=== PATIENT | female | born 1970 | race Caucasian/White ===

== ENCOUNTER 2017-10-11 16:20 | Emergency (ER) | payer SELFPAY ==
[~2017-10-11] VITALS: Ht 160 cm; Wt 97.1 kg
[~2017-10-11 16:20] MED LIST: ASPI325T49 PO; METF500T PO
[2017-10-11 16:29] VITALS: BP 136/84
[2017-10-11] MEDS ORDERED: LORazepam 2 MG/ML VIAL IM ONE (17:50)
[2017-10-11] MEDS ORDERED: KETOROLAC 60 MG/2 ML VIAL IM ONE (17:50)
[2017-10-11 19:01] LABS: APPEARANCE,URINE CLOUDY (CLEAR); BILIRUBIN,URINE NEGATIVE (NEGATIVE); BLOOD, URINE 3+ (NEGATIVE); COLOR,URINE YELLOW (YELLOW); LEUKOCYTE ESTERASE ,URINE NEGATIVE (NEGATIVE); NITRITE, URINE NEGATIVE (NEGATIVE); UGLUCOSE NEGATIVE (NEGATIVE)
[2017-10-11 19:15] VITALS: BP 128/82
[2017-10-11 19:29] LABS: RBC,URINE NONE SEEN /HPF (0-5); WBC,URINE NONE SEEN /HPF (0-5)
[2017-10-11 19:31] LABS: URINE AMORPHOUS URATE 4+ /HPF (None Seen)
== END 2017-10-11 19:15 | disposition home or self-care (01) ==
LOC: MED 16:20
DX: M51.36 Other intervertebral disc degeneration, lumbar region (principal); M47.896 Other spondylosis, lumbar region; E11.9 Type 2 diabetes mellitus without complications; I10 Essential (primary) hypertension; Z79.82 Long term (current) use of aspirin; Z79.84 Long term (current) use of oral hypoglycemic drugs
CPT/HCPCS: 74176; 81001; 81025; 96372; 99285; J1885; J2060; 99284

== ENCOUNTER 2018-02-19 19:31 | Emergency (ER) | payer MEDICARE ==
[~2018-02-19] VITALS: Ht 157.5 cm; Wt 99.8 kg
[2018-02-19 19:45] VITALS: BP 122/72
--- NOTE | 2018-02-19 19:45 | NUR ---
PT TAKEN TO BED 12
--- NOTE | 2018-02-19 20:21 | NUR ---
Dr. Huang evaluating patient at bedside.
[2018-02-19] MEDS ORDERED: MORPHINE SULFATE 4 MG/ML SYR IVP ONE (20:25)
--- NOTE | 2018-02-19 21:00 | NUR ---
PT TAKEN TO CT
[2018-02-19 21:59] VITALS: BP 128/69
--- NOTE | 2018-02-19 22:00 | NUR ---
Patient discharged with v/s stable. Written and verbal after care instructions given and explained. Patient alert, oriented and verbalized understanding of instructions. Ambulatory with steady gait. All questions addressed prior to discharge. ID band removed. Patient advised to follow up with PMD. Rx of IBU given. Patient educated on indication of medication including possible reaction and side effects. Opportunity to ask questions provided and answered.
== END 2018-02-19 22:00 | disposition home or self-care (01) ==
LOC: MED 19:31
DX: G44.309 Post-traumatic headache, unspecified, not intractable (principal); F07.81 Postconcussional syndrome; E11.9 Type 2 diabetes mellitus without complications; Z79.82 Long term (current) use of aspirin; Z79.84 Long term (current) use of oral hypoglycemic drugs
CPT/HCPCS: 70450; 81002; 81025; 96374; 99284; J2270

== ENCOUNTER 2018-05-15 01:10 | Emergency (ER) | payer BC, MEDICARE ==
[~2018-05-15] VITALS: Ht 157.5 cm; Wt 104.3 kg
[~2018-05-15 01:10] MED LIST changes: +ASPI-1205 PO; -ASPI325T49 PO
[2018-05-15 01:18] VITALS: BP 138/79
--- NOTE | 2018-05-15 01:36 | NUR ---
PT TO ED C/O GERNEALIZED HEADACHE AND DIZZINESS X 8HRS. PT DENIES N/V AT THIS TIME. PT ALERT TO NAME, BIRTHDAY, EVENT, AND PLACE. NO NEURO DEFICITIS NOTED. PT PLACED INTO BED, PENDING MD HERNANDEZ.
[2018-05-15] MEDS ORDERED: KETOROLAC 60 MG/2 ML VIAL IM ONE (03:10)
--- NOTE | 2018-05-15 03:15 | NUR ---
DR. VILLA AT BEDSIDE FOR EVALUATION.
[2018-05-15 04:00] VITALS: BP 130/78
--- NOTE | 2018-05-15 04:00 | NUR ---
Patient discharged with v/s stable. Written and verbal after care instructions given and explained. Patient alert, oriented and verbalized understanding of instructions. Ambulatory with steady gait. All questions addressed prior to discharge. ID band removed. Patient advised to follow up with PMD. Rx of MOTRIN, ZOFRAN, AND NORCO given. Patient educated on indication of medication including possible reaction and side effects. Opportunity to ask questions provided and answered.
== END 2018-05-15 04:00 | disposition home or self-care (01) ==
LOC: MED 01:10
DX: R51 Headache (principal); R68.83 Chills (without fever); R11.0 Nausea; E11.9 Type 2 diabetes mellitus without complications; I10 Essential (primary) hypertension; Z90.49 Acquired absence of other specified parts of digestive tract; Z79.82 Long term (current) use of aspirin; Z79.84 Long term (current) use of oral hypoglycemic drugs
CPT/HCPCS: 81002; 96372; 99283; J1885

== ENCOUNTER 2018-06-16 22:00 | Emergency (ER) | payer BC ==
[~2018-06-16] VITALS: Ht 157.5 cm; Wt 102.1 kg
[2018-06-16 22:06] VITALS: BP 132/67
--- NOTE | 2018-06-16 22:11 | NUR ---
TO LOBBY A/W BED, KO CHANDRA NOTED
--- NOTE | 2018-06-16 22:18 | NUR ---
PT TAKEN TO XRAY FROM [facility] MITCHELL
--- NOTE | 2018-06-16 22:30 | NUR ---
PT RETURN FROM XRAY TO LOBBY
--- NOTE | 2018-06-16 22:37 | NUR ---
PT TAKEN TO BED 11
--- NOTE | 2018-06-16 22:43 | NUR ---
PT CAME INTO THE ER WITH C/O R SHOULDER PAIN. PT STATED THAT SHE WAS AT WORK AND OVERSTRETCHED HER ARMS. NO N/V, PAIN 9/10, SHOOTING PAIN FROM WRIST TO NECK ON RIGHT UPPER EXTREMITY. LIMITED RANGE OF MOTION. NO INFLAMMATION NOTED, NO SKIN DISCOLORATION. PT WAITING TO BE EVALUATED BY ER MD, SAFETY PRECAUTIONS IN PLACE.
--- NOTE | 2018-06-16 22:53 | NUR ---
Lio camejo in [facility] - 06/17/18 at 0053 by LAKISHA PATIENT TAKEN TO XRAY BY RT
[2018-06-17] MEDS ORDERED: KETOROLAC 60 MG/2 ML VIAL IM ONE (00:25)
[2018-06-17 00:42] VITALS: BP 135/80
--- NOTE | 2018-06-17 00:42 | NUR ---
Patient discharged with v/s stable. Written and verbal after care instructions given and explained. Patient alert, oriented and verbalized understanding of instructions. Ambulatory with steady gait. All questions addressed prior to discharge. ID band removed. Patient advised to follow up with PMD. Rx of Tramadol, Motrin given. Patient educated on indication of medication including possible reaction and side effects. Opportunity to ask questions provided and answered. Daughter at bedside.
== END 2018-06-17 00:42 | disposition home or self-care (01) ==
LOC: MED 22:00
DX: M25.511 Pain in right shoulder (principal); E11.9 Type 2 diabetes mellitus without complications; I10 Essential (primary) hypertension; Z79.82 Long term (current) use of aspirin; Z79.84 Long term (current) use of oral hypoglycemic drugs
CPT/HCPCS: 73030; 93005; 96372; 99283; J1885; 99284

== ENCOUNTER 2018-11-19 10:24 | Emergency (ER) | payer BC ==
[~2018-11-19] VITALS: Ht 157.5 cm; Wt 101.3 kg
[2018-11-19 10:25] VITALS: BP 135/76
--- NOTE | 2018-11-19 10:32 | NUR ---
PT AMBULATED TO THE BATHROOM WITH STEADY GAIT. URINE CUP GIVEN
--- NOTE | 2018-11-19 10:37 | NUR ---
PT AMBULATED TO BED 9 WITH STEADY GAIT.
--- NOTE | 2018-11-19 10:37 | NUR ---
BIB SELF. AAO X4 C/O BILATERAL SHOULDER PAIN/NUMBING RADIATING TO BILATERAL ARMS X 2 WEEKS WORSENING TODAY. PT STATES HEADACHE TO RIGHT FRONTAL X TODAY. PT DENIES TRAUMA/ INJURY, CHEST PAIN, SOB. PT UNABLE TO FULLY LIFT UP BOTH ARMS, -DEFORMITY. PMH:DM MED RX: METFORMIN ALLERGY: DENIES
--- NOTE | 2018-11-19 10:37 | NUR ---
Lio camejo in [facility] - 11/19/18 at 1057 by JOSEE PT AMBULATED TO THE BATHROOM WITH STEADY GAIT. URINE CUP GIVEN
[2018-11-19] MEDS: KETOROLAC 60 MG/2 ML VIAL IM ONE (11:04)
[2018-11-19] MEDS ORDERED: KETOROLAC 60 MG/2 ML VIAL IM ONE (11:09)
[2018-11-19 11:36] VITALS: BP 135/76
== END 2018-11-19 11:36 | disposition home or self-care (01) ==
LOC: MED 10:24
DX: M75.41 Impingement syndrome of right shoulder (principal); E11.9 Type 2 diabetes mellitus without complications; I10 Essential (primary) hypertension; Z79.84 Long term (current) use of oral hypoglycemic drugs; Z79.82 Long term (current) use of aspirin; Z90.49 Acquired absence of other specified parts of digestive tract; Z98.890 Other specified postprocedural states
CPT/HCPCS: 73030; 81002; 81025; 82948; 96372; 99283; J1885; Q0092

== ENCOUNTER 2021-07-04 17:13 | Emergency (ER) | payer BC, MEDICAID ==
[~2021-07-04] VITALS: Ht 152.4 cm; Wt 105.2 kg
[2021-07-04 17:20] VITALS: BP 148/91
[2021-07-04] MEDS ORDERED: KETOROLAC 30 MG/ML VIAL IM ONE (17:40)
[2021-07-04 18:30] LABS: BASOPHILS # (AUTO) 0.1 K/uL (0.00-0.22); BASOPHILS % (AUTO) 0.6 % (0.0-2.0); EOSINOPHILS # (AUTO) 0.1 K/uL (0-0.4); EOSINOPHILS % (AUTO) 1.5 % (0.0-4.0); HEMATOCRIT 38.1 % (36-48); HEMOGLOBIN 12.7 g/dL (12.0-16.0); LYMPHOCYTES # (AUTO) 2.3 K/uL (2.5-16.5); LYMPHOCYTES % (AUTO) 23.4 % (20.5-51.1); MEAN CORPUSCULAR HEMOGLOBIN 30 pg (27-31); MEAN CORPUSCULAR HGB CONC 33 g/dL (33-37); MEAN CORPUSCULAR VOLUME 90.4 fL (80-94); MONOCYTES # (AUTO) 0.5 K/uL (0.8-1.0); MONOCYTES % (AUTO) 4.9 % (1.7-9.3); NEUTROPHILS # (AUTO) 6.9 K/uL (1.8-7.7); NEUTROPHILS % (AUTO) 69.6 % (42.2-75.2); PLATELET COUNT (AUTO) 225 K/uL (140-450); RED BLOOD CELL COUNT(AUTO) 4.22 MIL/uL (4.20-5.40); RED CELL DISTRIBUTION WIDTH 14.5 % (11.6-13.7); WHITE BLOOD COUNT (AUTO) 9.9 K/uL (4.8-10.8)
[2021-07-04 18:52] LABS: ALBUMIN 3.5 g/dL (3.4-5.0); ANION GAP 11.3 (8-16); CARBON DIOXIDE 27.4 mmol/L (21-32); CREATININE 0.7 mg/dL (0.6-1.3); POTASSIUM 3.7 mmol/L (3.5-5.1); TOTAL BILIRUBIN 0.2 mg/dL (0.0-1.0)
[2021-07-04] MEDS ORDERED: NAPR-54 PO (19:06)
[2021-07-04 19:08] VITALS: BP 130/80
== END 2021-07-04 19:17 | disposition home or self-care (01) ==
LOC: MED 17:13
DX: S16.1XXA Strain of muscle, fascia and tendon at neck level, initial encounter (principal); R20.2 Paresthesia of skin; R20.0 Anesthesia of skin; M25.511 Pain in right shoulder; M25.512 Pain in left shoulder; X58.XXXA Exposure to other specified factors, initial encounter; Y93.89 Activity, other specified; Y92.89 Other specified places as the place of occurrence of the external cause; Y99.8 Other external cause status
CPT/HCPCS: 36415; 73030; 80053; 85025; 96372; 99284; J1885; Q0092

== ENCOUNTER 2021-09-20 12:00 | Emergency (ER) | payer MEDICAID ==
[~2021-09-20] VITALS: Ht 165.1 cm; Wt 102.5 kg
[~2021-09-20 12:00] MED LIST changes: +METF-346 PO; -METF500T PO; +NAPR-54 PO
[2021-09-20 12:20] VITALS: BP 97/61
--- NOTE | 2021-09-20 12:24 | NUR ---
PT TO [facility] MITCHELL
--- NOTE | 2021-09-20 12:51 | NUR ---
CALLED [phone] NO ANSWERING.
--- NOTE | 2021-09-20 13:20 | NUR ---
PATIENT IN ROOM 4. PATIENT IN A GOWN. FAMILY AT BEDSIDE
--- NOTE | 2021-09-20 13:27 | NUR ---
PATIENT TO XRAY
[2021-09-20] MEDS ORDERED: KETOROLAC 30 MG/ML VIAL IM ONE (13:30)
--- NOTE | 2021-09-20 13:36 | NUR ---
51YR OLD PATIENT BIB SELF C/O R ARM PAIN S/P FALL X1 DAY AGO. PT STATES SHE FALL YESTERDAY AND LANDED ON HER BUTT. R ARM PAIN AND LOWER BACK PAIN 8/10 PAIN. GOOD CMS. PAIN WHEN ARM IS MOVED OR TOUCHED. A&OX4 DENIES CP AND SOB. FAMILY AT BEDSIDE. PT IS OMANI SPEAKING ONLY. \ NKDA DM
--- NOTE | 2021-09-20 15:15 | NUR ---
PATIENT SLEEPING RESP EVEN AND UNLABORED . FAMILY AT BEDSIDE. SIDE RAILS UPX2
--- NOTE | 2021-09-20 15:26 | NUR ---
PATIENT PAIN LEVEL AT A 3
--- NOTE | 2021-09-20 15:52 | NUR ---
R WRIST FABRICATED VELCRO SPLINT APPLIED TO PT R WRIST. + CMS AFTER APPLICATION
[2021-09-20] MEDS ORDERED: CYCL-711 PO (15:53)
[2021-09-20] MEDS ORDERED: IBUP-2213 PO (15:53)
[2021-09-20 16:01] VITALS: BP 125/80
--- NOTE | 2021-09-20 16:01 | NUR ---
Patient discharged with v/s stable. Written and verbal after care instructions given and explained. Patient alert, oriented and verbalized understanding of instructions. Ambulatory with steady gait. All questions addressed prior to discharge. ID band removed. Patient advised to follow up with PMD. Rx of FLEXERIL IBUPROFEN given. Patient educated on indication of medication including possible reaction and side effects. Opportunity to ask questions provided and answered.
--- NOTE | 2021-09-20 16:02 | NUR ---
Chart checked and completed. The patient's care was reviewed and supervised by Sowmya Yan RN.
== END 2021-09-20 16:01 | disposition home or self-care (01) ==
LOC: MED 12:00
DX: S63.501A Unspecified sprain of right wrist, initial encounter (principal); S39.012A Strain of muscle, fascia and tendon of lower back, initial encounter; I10 Essential (primary) hypertension; E11.9 Type 2 diabetes mellitus without complications; Z79.4 Long term (current) use of insulin; Z79.899 Other long term (current) drug therapy; W18.30XA Fall on same level, unspecified, initial encounter; Y93.89 Activity, other specified; Y92.89 Other specified places as the place of occurrence of the external cause; Y99.8 Other external cause status
CPT/HCPCS: 29125; 72100; 72220; 73090; 73110; 81002; 81025; 96372; 99284; J1885

== ENCOUNTER 2022-05-20 07:01 | Emergency (ER) | payer MEDICAID ==
[~2022-05-20] VITALS: Ht 157.5 cm; Wt 106.6 kg
[~2022-05-20 07:01] MED LIST changes: +CYCL-711 PO; +IBUP-2213 PO
[2022-05-20 07:04] VITALS: BP 142/76
--- NOTE | 2022-05-20 07:07 | NUR ---
TO LOBBY A/W BED AMBULATORY
[2022-05-20] MEDS ORDERED: AMOXIL/CLAVULANATE 875/125 MG 1 TAB PO ONE (07:35)
[2022-05-20] MEDS ORDERED: KETOROLAC 30 MG/ML VIAL IM ONE (07:35)
[2022-05-20] MEDS ORDERED: AMOX-1230 PO (08:25)
[2022-05-20] MEDS ORDERED: IBUP-2213 PO (08:25)
[2022-05-20 08:42] VITALS: BP 128/70
--- NOTE | 2022-05-20 08:43 | NUR ---
Patient discharged with v/s stable. Written and verbal after care instructions given and explained. Patient alert, oriented and verbalized understanding of instructions. Ambulatory with steady gait. All questions addressed prior to discharge. ID band removed. Patient advised to follow up with PMD. Rx of AUGMENTIN, MOTRIN given. Patient educated on indication of medication including possible reaction and side effects. Opportunity to ask questions provided and answered.
== END 2022-05-20 08:42 | disposition home or self-care (01) ==
LOC: MED 07:01
DX: J32.8 Other chronic sinusitis (principal); J02.9 Acute pharyngitis, unspecified; E11.9 Type 2 diabetes mellitus without complications; I10 Essential (primary) hypertension; Z79.899 Other long term (current) drug therapy
CPT/HCPCS: 87081; 96372; 99283; J1885

== ENCOUNTER 2022-12-04 21:22 | Emergency (ER) | payer MEDICAID ==
[~2022-12-04] VITALS: Ht 157.5 cm; Wt 99.8 kg
[~2022-12-04 21:22] MED LIST changes: +AMOX-1230 PO
[2022-12-04 21:35] VITALS: BP 150/77; PULSE 79; RESP 17; TEMP 97.6; O2SAT 100
[2022-12-04] MEDS ORDERED: ONDANSETRON 4 MG ODT PO ONE (21:55)
[2022-12-04] MEDS ORDERED: NACL 0.9% 1,000 ML IV ONE (22:05)
[2022-12-04 22:19] LABS: BASOPHILS % (AUTO) 0.2 % (0.0-2.0); EOSINOPHILS # (AUTO) 0.1 K/uL (0-0.4); EOSINOPHILS % (AUTO) 0.9 % (0.0-4.0); HEMATOCRIT 40.8 % (36-48); HEMOGLOBIN 13.6 g/dL (12.0-16.0); LYMPHOCYTES % (AUTO) 31.5 % (20.5-51.1); MEAN CORPUSCULAR HEMOGLOBIN 30 pg (27-31); MEAN CORPUSCULAR HGB CONC 33 g/dL (33-37); MEAN CORPUSCULAR VOLUME 89.6 fL (80-94); MONOCYTES # (AUTO) 0.4 K/uL (0.8-1.0); MONOCYTES % (AUTO) 4.7 % (1.7-9.3); NEUTROPHILS % (AUTO) 62.7 % (42.2-75.2); PLATELET COUNT (AUTO) 246 K/uL (140-450); RED BLOOD CELL COUNT(AUTO) 4.56 MIL/uL (4.20-5.40); RED CELL DISTRIBUTION WIDTH 15.5 % (11.6-13.7); WHITE BLOOD COUNT (AUTO) 9.5 K/uL (4.8-10.8)
[2022-12-04 22:26] LABS: APPEARANCE,URINE CLEAR (CLEAR); BILIRUBIN,URINE NEGATIVE (NEGATIVE); BLOOD, URINE NEGATIVE (NEGATIVE); COLOR,URINE YELLOW (YELLOW); LEUKOCYTE ESTERASE ,URINE NEGATIVE (NEGATIVE); NITRITE, URINE NEGATIVE (NEGATIVE); PH,URINE 7.5 (5.0-9.0); PROTEIN,URINE TRACE (NEGATIVE); UGLUCOSE NEGATIVE (NEGATIVE); UROBILINOGEN,URINE 0.2 EU/dL (0.2 - 1)
[2022-12-04 22:32] LABS: ALBUMIN 3.8 g/dL (3.4-5.0); ANION GAP 13.1 (8-16); CALCIUM 9.3 mg/dL (8.5-10.1); CARBON DIOXIDE 27.8 mmol/L (21-32); CREATININE 0.9 mg/dL (0.6-1.3); POTASSIUM 3.9 mmol/L (3.5-5.1); TOTAL BILIRUBIN 0.4 mg/dL (0.0-1.0); TOTAL PROTEIN, SERUM 7.8 g/dL (6.4-8.2)
[2022-12-04 22:50] LABS: FLU A ANTIGEN negative (NEGATIVE); FLU B ANTIGEN NEGATIVE (NEGATIVE)
[2022-12-04] MEDS ORDERED: MAG-27 PO (23:32)
[2022-12-04] MEDS ORDERED: ONDA-188 PO (23:32)
[2022-12-04 23:48] VITALS: PULSE 79; RESP 17; TEMP 97.6; O2SAT 100
== END 2022-12-04 23:48 | disposition home or self-care (01) ==
LOC: MED 21:22
DX: R11.10 Vomiting, unspecified (principal); R19.7 Diarrhea, unspecified; R10.9 Unspecified abdominal pain; E11.9 Type 2 diabetes mellitus without complications; I10 Essential (primary) hypertension; Z79.899 Other long term (current) drug therapy; Z79.84 Long term (current) use of oral hypoglycemic drugs; Z90.49 Acquired absence of other specified parts of digestive tract; Z20.822 Contact with and (suspected) exposure to COVID-19
CPT/HCPCS: 36415; 80053; 81003; 83690; 85025; 87426; 87804; 96360; 99283; J7030; Q0162

== ENCOUNTER 2023-03-08 07:14 | Emergency (ER) | payer MEDICAID ==
[~2023-03-08] VITALS: Ht 152.4 cm; Wt 90.7 kg
[~2023-03-08 07:14] MED LIST changes: +MAG-27 PO; +ONDA-188 PO
[2023-03-08 07:56] VITALS: BP 112/66; PULSE 64; RESP 18; TEMP 98.5; O2SAT 98
[2023-03-08 10:01] VITALS: BP 112/66; PULSE 64; RESP 18; TEMP 98.5; O2SAT 98
[2023-03-08] MEDS: NACL 0.9% 1,000 ML IV ONE (10:02)
[2023-03-08] MEDS: ONDANSETRON 4 MG/2 ML VIAL IVP ONE (10:04)
[2023-03-08] MEDS: KETOROLAC 30 MG/ML VIAL IVP ONE (10:04)
[2023-03-08 10:27] LABS: FLU A ANTIGEN negative (NEGATIVE); FLU B ANTIGEN negative (NEGATIVE)
[2023-03-08] MEDS ORDERED: ONDA8TAB87 PO (10:36)
[2023-03-08] MEDS ORDERED: IBUP-2213 PO (10:36)
== END 2023-03-08 09:55 | disposition home or self-care (01) ==
LOC: MED 07:14
DX: R51.9 Headache, unspecified (principal); M79.18 Myalgia, other site; Z20.822 Contact with and (suspected) exposure to COVID-19; E11.9 Type 2 diabetes mellitus without complications; I10 Essential (primary) hypertension; Z90.49 Acquired absence of other specified parts of digestive tract; Z79.899 Other long term (current) drug therapy; Z79.1 Long term (current) use of non-steroidal anti-inflammatories (NSAID); Z79.82 Long term (current) use of aspirin; Z79.2 Long term (current) use of antibiotics
CPT/HCPCS: 81025; 87426; 87804; 96361; 96374; 96375; 99284; J1885; J2405; J7030

== ENCOUNTER 2023-03-26 20:51 | Inpatient (IN) | payer MEDICAID ==
[~2023-03-26] VITALS: Ht 157.5 cm; Wt 102.1 kg
[~2023-03-26 20:51] MED LIST changes: +ONDA8TAB87 PO
[2023-03-26 21:27] VITALS: BP 122/69; PULSE 63; RESP 18; TEMP 97.3; O2SAT 99
[2023-03-26 22:50] VITALS: O2SAT 99
[2023-03-26 23:16] LABS: BASOPHILS % (AUTO) 0.4 % (0.0-2.0); EOSINOPHILS # (AUTO) 0.2 K/uL (0-0.4); EOSINOPHILS % (AUTO) 1.6 % (0.0-4.0); HEMOGLOBIN 13.2 g/dL (12.0-16.0); LYMPHOCYTES % (AUTO) 32.7 % (20.5-51.1); MEAN CORPUSCULAR HEMOGLOBIN 30 pg (27-31); MEAN CORPUSCULAR HGB CONC 34 g/dL (33-37); MEAN CORPUSCULAR VOLUME 89.9 fL (80-94); MONOCYTES # (AUTO) 0.6 K/uL (0.8-1.0); MONOCYTES % (AUTO) 6.4 % (1.7-9.3); NEUTROPHILS # (AUTO) 5.5 K/uL (1.8-7.7); NEUTROPHILS % (AUTO) 58.9 % (42.2-75.2); PLATELET COUNT (AUTO) 224 K/uL (140-450); RED BLOOD CELL COUNT(AUTO) 4.34 MIL/uL (4.20-5.40); RED CELL DISTRIBUTION WIDTH 13.6 % (11.6-13.7); WHITE BLOOD COUNT (AUTO) 9.3 K/uL (4.8-10.8)
[2023-03-26 23:20] LABS: APPEARANCE,URINE CLEAR (CLEAR); BILIRUBIN,URINE NEGATIVE (NEGATIVE); BLOOD, URINE NEGATIVE (NEGATIVE); COLOR,URINE YELLOW (YELLOW); LEUKOCYTE ESTERASE ,URINE NEGATIVE (NEGATIVE); NITRITE, URINE NEGATIVE (NEGATIVE); PROTEIN,URINE NEGATIVE (NEGATIVE); UGLUCOSE NEGATIVE (NEGATIVE); UROBILINOGEN,URINE 0.2 EU/dL (0.2 - 1)
[2023-03-26 23:33] LABS: INR 0.94 (0.8-1.2); PARTIAL THROMBOPLASTIN TIME 32.7 secs (22-35.6); PROTHROMBIN TIME 9.9 secs (10.8-13.4)
[2023-03-26 23:39] LABS: ALANINE AMINOTRANSFERASE 23 U/L (12-78); ALKALINE PHOSPHATASE 107 U/L (50-136); ASPARTATE AMINOTRANSFERASE 14 U/L (15-37); BILIRUBIN,DIRECT 0.1 mg/dL (0.0-0.3); TOTAL BILIRUBIN 0.2 mg/dL (0.0-1.0); TOTAL PROTEIN, SERUM 8.4 g/dL (6.4-8.2)
[2023-03-26 23:40] LABS: ALBUMIN 3.4 g/dL (3.4-5.0)
[2023-03-26 23:41] LABS: ANION GAP 12.1 (8-16); CALCIUM 8.8 mg/dL (8.5-10.1); CARBON DIOXIDE 27.8 mmol/L (21-32); CREATININE 0.9 mg/dL (0.6-1.3); POTASSIUM 3.9 mmol/L (3.5-5.1)
[2023-03-27] VITALS (7 sets, daily range): BP systolic 152; BP diastolic 68–73; PULSE 59–84; RESP 18–20; TEMP 97.6–98.1; O2SAT 96–99
[2023-03-27] MEDS ORDERED: NACL 0.9% 1,000 ML IV ONE
[2023-03-27] MEDS ORDERED: PROCHLORPERAZINE 10 MG/2 ML VIAL IVP ONE
[2023-03-27] MEDS ORDERED: KETOROLAC 30 MG/ML VIAL IVP ONE
[2023-03-27] MEDS ORDERED: diphenhydrAMINE 50 MG/ML VIAL IVP ONE
[2023-03-27] MEDS ORDERED: POTASSIUM CHLORIDE 10 MEQ TABER PO PRN (02:40)
[2023-03-27] MEDS ORDERED: LORazepam 1 MG TAB PO PRN (02:40)
[2023-03-27] MEDS ORDERED: KCL 20 MEQ IN 100 mL PREMIX 200 ML IV PRN (02:40)
[2023-03-27] MEDS ORDERED: MORPHINE SULFATE 4 MG/ML SYR IVP PRN (02:40)
[2023-03-27] MEDS ORDERED: MAG SULF 2000 MG/WATER PREMIX 50 ML IV PRN (02:40)
[2023-03-27] MEDS: NACL 0.9% 1,000 ML IV SCH ×2 (04:46→15:10)
[2023-03-27] MEDS: ENOXAPARIN 40 MG/0.4 ML SYR SUBQ SCH (09:19)
[2023-03-27] MEDS: NIFEdipine 30 MG TABER PO SCH (09:21)
[2023-03-27] MEDS: DOCUSATE SODIUM 100 MG GELCAP PO SCH (09:22)
[2023-03-27] MEDS: HYDROcodone/APAP 5/325 MG 1 TAB TAB PO PRN ×2 (12:24→18:35)
[2023-03-27 16:28] LABS: BASOPHILS # (AUTO) 0.1 K/uL (0.00-0.22); EOSINOPHILS # (AUTO) 0.2 K/uL (0-0.4); EOSINOPHILS % (AUTO) 2.4 % (0.0-4.0); HEMATOCRIT 39.6 % (36-48); HEMOGLOBIN 13.3 g/dL (12.0-16.0); LYMPHOCYTES # (AUTO) 3.1 K/uL (2.5-16.5); LYMPHOCYTES % (AUTO) 41.3 % (20.5-51.1); MEAN CORPUSCULAR HEMOGLOBIN 30 pg (27-31); MEAN CORPUSCULAR HGB CONC 34 g/dL (33-37); MEAN CORPUSCULAR VOLUME 89.9 fL (80-94); MONOCYTES # (AUTO) 0.4 K/uL (0.8-1.0); MONOCYTES % (AUTO) 5.8 % (1.7-9.3); NEUTROPHILS # (AUTO) 3.7 K/uL (1.8-7.7); NEUTROPHILS % (AUTO) 49.5 % (42.2-75.2); PLATELET COUNT (AUTO) 232 K/uL (140-450); RED BLOOD CELL COUNT(AUTO) 4.41 MIL/uL (4.20-5.40); RED CELL DISTRIBUTION WIDTH 13.6 % (11.6-13.7); WHITE BLOOD COUNT (AUTO) 7.5 K/uL (4.8-10.8)
[2023-03-27 17:47] LABS: ANION GAP 17.2 (8-16); CARBON DIOXIDE 22.7 mmol/L (21-32); CREATININE 0.8 mg/dL (0.6-1.3); POTASSIUM 3.9 mmol/L (3.5-5.1)
[2023-03-27] MEDS: ONDANSETRON 4 MG/2 ML VIAL IVP PRN (18:58)
[2023-03-27] MEDS: HYDROmorphone 1 MG/ML AMP IVP PRN (18:58)
[2023-03-28] VITALS: BP 136/72; PULSE 67; PULSE 82; RESP 18; TEMP 98; O2SAT 97
[2023-03-28] MEDS: ACETAMINOPHEN 325 MG TAB PO PRN ×3 (00:47→21:02)
[2023-03-28] MEDS: NACL 0.9% 1,000 ML IV SCH ×2 (03:40→15:33)
[2023-03-28 04:00] VITALS: BP 128/66; PULSE 70; PULSE 78; RESP 18; TEMP 97.6; O2SAT 98
[2023-03-28 06:21] LABS: BASOPHILS % (AUTO) 0.7 % (0.0-2.0); EOSINOPHILS # (AUTO) 0.1 K/uL (0-0.4); EOSINOPHILS % (AUTO) 2.2 % (0.0-4.0); HEMOGLOBIN 13.8 g/dL (12.0-16.0); LYMPHOCYTES # (AUTO) 2.2 K/uL (2.5-16.5); LYMPHOCYTES % (AUTO) 34.1 % (20.5-51.1); MEAN CORPUSCULAR HEMOGLOBIN 31 pg (27-31); MEAN CORPUSCULAR HGB CONC 34 g/dL (33-37); MEAN CORPUSCULAR VOLUME 89.1 fL (80-94); MONOCYTES # (AUTO) 0.3 K/uL (0.8-1.0); MONOCYTES % (AUTO) 5.2 % (1.7-9.3); NEUTROPHILS # (AUTO) 3.7 K/uL (1.8-7.7); NEUTROPHILS % (AUTO) 57.8 % (42.2-75.2); PLATELET COUNT (AUTO) 220 K/uL (140-450); RED BLOOD CELL COUNT(AUTO) 4.49 MIL/uL (4.20-5.40); RED CELL DISTRIBUTION WIDTH 13.7 % (11.6-13.7); WHITE BLOOD COUNT (AUTO) 6.4 K/uL (4.8-10.8)
[2023-03-28] MEDS: HYDROmorphone 1 MG/ML AMP IVP PRN (06:26)
[2023-03-28 06:50] LABS: ANION GAP 12.3 (8-16); CARBON DIOXIDE 26.7 mmol/L (21-32); CREATININE 0.7 mg/dL (0.6-1.3)
[2023-03-28 08:00] VITALS: BP 130/77; PULSE 54; PULSE 56; RESP 16; TEMP 96.1; O2SAT 96
[2023-03-28] MEDS: NIFEdipine 30 MG TABER PO SCH (08:49)
[2023-03-28] MEDS: ONDANSETRON 4 MG/2 ML VIAL IVP PRN (08:49)
[2023-03-28] MEDS: DOCUSATE SODIUM 100 MG GELCAP PO SCH (08:49)
[2023-03-28] MEDS: ENOXAPARIN 40 MG/0.4 ML SYR SUBQ SCH (08:57)
[2023-03-28 12:00] VITALS: BP 112/76; PULSE 70; PULSE 79; RESP 16; TEMP 97.3; O2SAT 96
[2023-03-28] MEDS ORDERED: METOCLOPRAMIDE 10 MG/2 ML INJ VIAL IVP SCH (15:20)
[2023-03-28] MEDS ORDERED: KETOROLAC 30 MG/ML VIAL IVP ONE (15:20)
[2023-03-28] MEDS ORDERED: diphenhydrAMINE 50 MG/ML VIAL IVP ONE (15:20)
[2023-03-28 16:04] VITALS: BP 137/84; PULSE 75; RESP 20; TEMP 96.8; O2SAT 97
[2023-03-28 20:00] VITALS: BP 117/71; PULSE 75; RESP 18; TEMP 97.4; O2SAT 96; O2SAT 97
[2023-03-29] VITALS: BP 129/78; PULSE 74; RESP 18; TEMP 98; O2SAT 96
[2023-03-29 04:00] VITALS: BP 121/65; PULSE 67; RESP 18; TEMP 98.1; O2SAT 97
[2023-03-29] MEDS: NACL 0.9% 1,000 ML IV SCH ×2 (04:45→17:10)
[2023-03-29 06:15] LABS: BASOPHILS % (AUTO) 0.6 % (0.0-2.0); EOSINOPHILS # (AUTO) 0.2 K/uL (0-0.4); EOSINOPHILS % (AUTO) 2.9 % (0.0-4.0); HEMATOCRIT 38.2 % (36-48); HEMOGLOBIN 12.8 g/dL (12.0-16.0); LYMPHOCYTES # (AUTO) 2.2 K/uL (2.5-16.5); LYMPHOCYTES % (AUTO) 33.5 % (20.5-51.1); MEAN CORPUSCULAR HEMOGLOBIN 30 pg (27-31); MEAN CORPUSCULAR HGB CONC 34 g/dL (33-37); MEAN CORPUSCULAR VOLUME 89.9 fL (80-94); MONOCYTES # (AUTO) 0.4 K/uL (0.8-1.0); MONOCYTES % (AUTO) 5.8 % (1.7-9.3); NEUTROPHILS # (AUTO) 3.8 K/uL (1.8-7.7); NEUTROPHILS % (AUTO) 57.2 % (42.2-75.2); PLATELET COUNT (AUTO) 212 K/uL (140-450); RED BLOOD CELL COUNT(AUTO) 4.26 MIL/uL (4.20-5.40); RED CELL DISTRIBUTION WIDTH 13.8 % (11.6-13.7); WHITE BLOOD COUNT (AUTO) 6.6 K/uL (4.8-10.8)
[2023-03-29 07:26] LABS: ANION GAP 13.9 (8-16); CALCIUM 8.8 mg/dL (8.5-10.1); CARBON DIOXIDE 25.9 mmol/L (21-32); CREATININE 0.6 mg/dL (0.6-1.3); POTASSIUM 3.8 mmol/L (3.5-5.1)
[2023-03-29 08:00] VITALS: BP 132/74; PULSE 60; RESP 18; TEMP 97.8; O2SAT 97
[2023-03-29] MEDS: HYDROmorphone 1 MG/ML AMP IVP PRN ×2 (09:11→15:32)
[2023-03-29] MEDS: ONDANSETRON 4 MG/2 ML VIAL IVP PRN (09:13)
[2023-03-29] MEDS: DOCUSATE SODIUM 100 MG GELCAP PO SCH (09:34)
[2023-03-29] MEDS: NIFEdipine 30 MG TABER PO SCH (09:36)
[2023-03-29] MEDS: ENOXAPARIN 40 MG/0.4 ML SYR SUBQ SCH (09:36)
[2023-03-29] MEDS: ACETAMINOPHEN 325 MG TAB PO PRN (13:02)
[2023-03-29] MEDS ORDERED: TOP25 PO (14:59)
== END 2023-03-29 17:15 | disposition home or self-care (01) | DRG 54 ==
LOC: MED 20:51 → OBSVTOIN 03-27 02:42 → MTU 03-27 02:42
PROVIDERS: ADMIT Hospitalist; ATTEND Hospitalist
DX: G43.809 Other migraine, not intractable, without status migrainosus (principal); E11.9 Type 2 diabetes mellitus without complications; I10 Essential (primary) hypertension
CPT/HCPCS: 36415; 70450; 71045; 80048; 80076; 81003; 82948; 83735; 84100; 84484; 85025; 85610; 85730; 86886; 86900; 86901; 87081; 93005; 96361; 96374; 96375; 99291; J0780; J1170; J1200; J1650; J1885; J2270; J2405; J2765; Q0092; Q9967

== ENCOUNTER 2023-05-11 10:45 | Emergency (ER) | payer MEDICAID ==
[~2023-05-11] VITALS: Ht 157.5 cm; Wt 104.3 kg
[~2023-05-11 10:45] MED LIST changes: -AMOX-1230 PO; +TOP25 PO
[2023-05-11 11:06] VITALS: BP 127/91; PULSE 80; RESP 16; TEMP 97.5; O2SAT 97
[2023-05-11] MEDS ORDERED: ACET-503 PO (13:26)
[2023-05-11] MEDS: KETOROLAC 60 MG/2 ML VIAL IM ONE (13:59)
== END 2023-05-11 14:01 | disposition home or self-care (01) ==
LOC: MED 10:45
DX: M54.50 Low back pain, unspecified (principal); M79.602 Pain in left arm; R42 Dizziness and giddiness; E11.9 Type 2 diabetes mellitus without complications; Z90.49 Acquired absence of other specified parts of digestive tract; Z79.899 Other long term (current) drug therapy; Z79.82 Long term (current) use of aspirin
CPT/HCPCS: 82948; 96372; 99283; J1885

== ENCOUNTER 2023-07-15 12:03 | Emergency (ER) | payer MEDICAID ==
[~2023-07-15] VITALS: Ht 157.5 cm; Wt 104.8 kg
[~2023-07-15 12:03] MED LIST changes: +ACET-503 PO; +NAPR-337 PO; -NAPR-54 PO
[2023-07-15 12:15] VITALS: BP 112/68; PULSE 68; RESP 16; TEMP 97.8; O2SAT 96
[2023-07-15] MEDS ORDERED: NAPR-1703 PO (13:24)
[2023-07-15] MEDS ORDERED: DICL100G32 TP (13:24)
[2023-07-15] MEDS ORDERED: LID5T TP (13:32)
== END 2023-07-15 13:45 | disposition home or self-care (01) ==
LOC: MED 12:03
DX: S93.491A Sprain of other ligament of right ankle, initial encounter (principal); M76.891 Other specified enthesopathies of right lower limb, excluding foot; Z79.899 Other long term (current) drug therapy; X50.1XXA Overexertion from prolonged static or awkward postures, initial encounter; Y93.89 Activity, other specified; Y92.89 Other specified places as the place of occurrence of the external cause; Y99.8 Other external cause status
CPT/HCPCS: 73610; 73630; 99284

== ENCOUNTER 2023-08-03 15:42 | Emergency (ER) | payer MEDICAID ==
[~2023-08-03] VITALS: Ht 149.9 cm; Wt 102.5 kg
[~2023-08-03 15:42] MED LIST changes: +DICL100G32 TP; +LID5T TP; +NAPR-1703 PO
[2023-08-03 15:46] VITALS: BP 147/88; PULSE 70; RESP 20; TEMP 97; O2SAT 96
[2023-08-03 17:53] LABS: APPEARANCE,URINE CLEAR (CLEAR); BILIRUBIN,URINE NEGATIVE (NEGATIVE); BLOOD, URINE TRACE-I (NEGATIVE); COLOR,URINE YELLOW (YELLOW); LEUKOCYTE ESTERASE ,URINE NEGATIVE (NEGATIVE); NITRITE, URINE NEGATIVE (NEGATIVE); PROTEIN,URINE NEGATIVE (NEGATIVE); UGLUCOSE NEGATIVE (NEGATIVE); UROBILINOGEN,URINE 0.2 EU/dL (0.2 - 1)
[2023-08-03 18:01] LABS: BASOPHILS % (AUTO) 0.6 % (0.0-2.0); EOSINOPHILS # (AUTO) 0.1 K/uL (0-0.4); EOSINOPHILS % (AUTO) 0.8 % (0.0-4.0); HEMATOCRIT 41.6 % (36-48); LYMPHOCYTES # (AUTO) 2.3 K/uL (2.5-16.5); LYMPHOCYTES % (AUTO) 33.1 % (20.5-51.1); MEAN CORPUSCULAR HEMOGLOBIN 30 pg (27-31); MEAN CORPUSCULAR HGB CONC 34 g/dL (33-37); MEAN CORPUSCULAR VOLUME 89.5 fL (80-94); MONOCYTES # (AUTO) 0.6 K/uL (0.8-1.0); NEUTROPHILS % (AUTO) 56.5 % (42.2-75.2); PLATELET COUNT (AUTO) 223 K/uL (140-450); RED BLOOD CELL COUNT(AUTO) 4.65 MIL/uL (4.20-5.40); RED CELL DISTRIBUTION WIDTH 14.1 % (11.6-13.7); WHITE BLOOD COUNT (AUTO) 7.1 K/uL (4.8-10.8)
[2023-08-03] MEDS: ONDANSETRON 4 MG/2 ML VIAL IVP ONE (18:13)
[2023-08-03] MEDS: MORPHINE SULFATE 4 MG/ML SYR IVP ONE (18:17)
[2023-08-03 18:29] LABS: ALANINE AMINOTRANSFERASE 30 U/L (12-78); ALKALINE PHOSPHATASE 97 U/L (50-136); ASPARTATE AMINOTRANSFERASE 22 U/L (15-37); BILIRUBIN,DIRECT 0.1 mg/dL (0.0-0.3); LIPASE 52 U/L (16-77); TOTAL BILIRUBIN 0.4 mg/dL (0.0-1.0); TOTAL PROTEIN, SERUM 8.2 g/dL (6.4-8.2)
[2023-08-03 18:48] LABS: CALCIUM 9.5 mg/dL (8.5-10.1); CARBON DIOXIDE 27.1 mmol/L (21-32); POTASSIUM 4.1 mmol/L (3.5-5.1)
[2023-08-03] MEDS ORDERED: METO-485 PO (21:49)
[2023-08-03] MEDS ORDERED: MIRABULK PO (21:50)
[2023-08-03 22:03] VITALS: BP 123/77; PULSE 75; RESP 14; O2SAT 98
== END 2023-08-03 22:20 | disposition home or self-care (01) ==
LOC: MED 15:42
DX: K59.00 Constipation, unspecified (principal); E11.9 Type 2 diabetes mellitus without complications; Z90.49 Acquired absence of other specified parts of digestive tract; Z79.84 Long term (current) use of oral hypoglycemic drugs; Z79.82 Long term (current) use of aspirin; Z79.1 Long term (current) use of non-steroidal anti-inflammatories (NSAID); Z79.899 Other long term (current) drug therapy
CPT/HCPCS: 36415; 74176; 80048; 80076; 81003; 83690; 84484; 85025; 93005; 96374; 96375; 99285; J2270; J2405